=== PATIENT | male | born 1990 | race Caucasian/White ===

== ENCOUNTER 2022-02-15 23:42 | Emergency (ER) | payer SELFPAY ==
[~2022-02-15] VITALS: Ht 177.8 cm; Wt 78.0 kg
[2022-02-15 23:52] VITALS: BP 138/92
[2022-02-16] MEDS ORDERED: BACITRACIN ZINC OINT UDPKT TOP ONE (00:30)
[2022-02-16] MEDS ORDERED: LIDOCAINE HCL 1% 20ML VIAL (Pyxis) INJ INFIL ONE (00:30)
[2022-02-16] MEDS ORDERED: IBUP-2029 PO (01:13)
[2022-02-16] MEDS ORDERED: CEPH500C2 PO (01:13)
[2022-02-16] MEDS ORDERED: TETANUS, DIPHTHERIA, PERTUSSIS VAC/PF 0.5ML (>10YR OLD) IM ONE (01:15)
== END 2022-02-16 01:50 | disposition home or self-care (01) ==
LOC: ER 23:42
DX: S01.511A Laceration without foreign body of lip, initial encounter (principal); W21.220A Struck by ice hockey puck, initial encounter; Y93.22 Activity, ice hockey; Y92.89 Other specified places as the place of occurrence of the external cause; Y99.8 Other external cause status
CPT/HCPCS: 12011; 99282; J3490